=== PATIENT | male | born 1985 | race Caucasian/White ===

== ENCOUNTER 2017-02-25 07:08 | Emergency (ER) | payer OTHER ==
[~2017-02-25] VITALS: Ht 185.4 cm; Wt 142.0 kg
[~2017-02-25 07:08] MED LIST: LANS15CA27 PO
[2017-02-25] MEDS ORDERED: KETOROLAC TROMETHAMINE 30 MG/ML VIAL IV STA (07:10)
[2017-02-25] MEDS ORDERED: HYDROmorphone INJ 1 MG/ML SYR IV STA ×3 (07:10→12:18)
[2017-02-25] MEDS ORDERED: LIDODERM (LIDOCAINE) PATCH 5% TD STA (07:10)
[2017-02-25] MEDS ORDERED: CYCLOBENZAPRINE HCL 5 MG TAB PO STA (07:10)
[2017-02-25] MEDS ORDERED: DEXAMETHASONE INJ 10 MG in SYRINGE 0 ML IV STA (07:10)
[2017-02-25 07:12] VITALS: TEMP 37.1; Ht 185.4 cm; Wt 142.0 kg
--- NOTE | 2017-02-25 07:23 | EMERGENCY ROOM VISIT NOTE ---
History Report prepared by Josh: Abe Camara Under the Supervision of: Dr. Steve Francis M.D. First contact with patient: 07:06 Chief Complaint: BACK INJURY Stated Complaint: BACK PAIN History of Present Illness The patient is a 31 year old male who presents to the Emergency Room with complaints of constant sharp lower back pain that began [employer]. He rates his pain moderate in severity. 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 As he was lifting someone onto a stretcher, he felt and audibly hear a pop in his lower back. Then his legs felt mildly weak bilaterally and he began to have a constant pain in his lower back. He denies any current weakness or numbness. He feels as though his left leg is "heavy" but believes it is due to having to compensate for the other leg secondary to pain. His pain is exacerbated with movement. He denies any other abnormal symptoms at this time. He denies any previous back injuries. Source of History: patient Onset: [employer] Position: back (lower) Symptom Intensity: moderate Quality: sharp Timing: constant Modifying Factors (Worsening): movement Associated Symptoms: No weakness, No numbness Note: He denies any other abnormal symptoms at this time. Review of Systems See HPI for pertinent positives & negatives. A total of 10 systems reviewed and were otherwise negative. Past Medical & Surgical Medical Problems: (1) GERD (gastroesophageal reflux disease) Surgical Problems: (1) Hx of tonsillectomy Family History Cancer Diabetes mellitus Heart disease Social History Smoking Status: Never Smoker Alcohol Use: occasionally Marital Status: Housing Status: lives with significant other Occupation Status: employed Current/Historical Medications Scheduled Lansoprazole (Eq Lansoprazole), 15 MG PO DAILY Methylprednisolone (Medrol Dosepak), 1 PKT PO UD Scheduled PRN Oxycodone/Acetaminophen 5MG/325MG (Percocet 5MG/325MG), 1-2 TAB PO Q4H PRN for Pain Allergies Coded Allergies: No Known Allergies (Unverified , 02/25/17) Physical Exam Vital Signs Date Time Temp Pulse Resp B/P (MAP) Pulse Ox O2 Delivery O2 Flow Rate FiO2 02/25/17 12:35 89 16 130/77 98 02/25/17 11:27 89 16 130/77 98 Room Air 02/25/17 08:59 73 16 130/79 95 02/25/17 07:33 82 16 130/80 96 02/25/17 07:12 37.1 82 18 147/93 98 Room Air Physical Exam GENERAL: Patient is a healthy-appearing well-nourished male HEAD: Normocephalic atraumatic EYES: Ocular movements intact pupils equal and react to light OROPHARYNX mucous membranes are moist no exudates present no erythema or edema present NECK: Supple no nuchal rigidity CHEST: Good equal expansion LUNGS: Clear and equal to auscultation CARDIAC: Normal S1 and S2 ABDOMEN: Soft nontender no guarding BACK: No CVA tenderness. Able to walk on tiptoes and heels. No saddle anesthesia. No loss of bladder control. EXTREMITIES: No pain upon palpation normal muscle strength in all groups no clubbing cyanosis or edema NEURO: Patient is following commands and answering questions appropriately. Alert and oriented x3 Cranial Nerves 2-12 grossly intact Medical Decision & Procedures ER Provider Diagnostic Interpretation: Radiology results as stated below per my review and radiologist interpretation: MRI OF THE LUMBAR SPINE WITHOUT CONTRAST CLINICAL HISTORY: Low back pain. Left leg weakness. COMPARISON STUDY: No previous studies for comparison. TECHNIQUE: Utilizing a 1.5 Linnea magnet and dedicated coil, multiplanar, multiecho imaging of the lumbar spine was performed without IV contrast. FINDINGS: For purposes of numbering on this exam, the L5-S1 disc space is assigned to axial image 23 of 25. Alignment of the lumbar spine is anatomic. Vertebral body heights are maintained. There is no marrow replacement. There is no intracanalicular mass or fluid collection. Paravertebral soft tissues are unremarkable. Conus terminates at the T12-L1 level. L1-2: The central canal and neural foramen are patent. L2-3: The central canal and neural foramen are patent. L3-4: The central canal neural foramen are patent. L4-5: The central canal and neural foramen are patent. L5-S1: There is mild disc space narrowing. Note is made of a left paracentral disc protrusion that measures 8 x 7 x 5 mm. This results in moderate narrowing of the left lateral recess. This displaces the descending left S1 nerve root. The neural foramen are patent. There is no significant central canal stenosis. IMPRESSION: 1. 8 mm x 7 mm x 5 mm left paracentral disc protrusion at L5-S1 that results in moderate narrowing of the left lateral recess. This disc herniation contacts and likely displaces the descending left S1 nerve root. This could be correlated with left S1 radiculopathy. 2. Otherwise, unremarkable MRI of the lumbar spine. Electronically signed by: Brenden Guy M.D. 02/25/2017 8:22 AM Dictated Date/Time: 02/25/2017 8:14 AM Medications Administered Medications (Trade) Dose Ordered Sig/Kristen Route Start Time Stop Time Status Last Admin Dose Admin Hydromorphone HCl (Dilaudid Inj) 1 mg NOW STAT IV 02/25/17 07:10 02/25/17 07:13 DC 02/25/17 07:24 1 MG Ketorolac Tromethamine (Toradol Inj) 30 mg NOW STAT IV 02/25/17 07:10 02/25/17 07:13 DC 02/25/17 07:22 30 MG Dexamethasone Sodium Phosphate 10 mg/Syringe 2.5 ml @ 1 mls/min NOW STAT IV 02/25/17 07:10 02/25/17 07:13 DC 02/25/17 07:30 1 MLS/MIN Cyclobenzaprine HCl (Flexeril Tab) 10 mg NOW STAT PO 02/25/17 07:10 02/25/17 07:13 DC 02/25/17 07:26 10 MG Lidocaine (Lidoderm Patch 5%) 1 patch NOW STAT TD 02/25/17 07:10 02/25/17 07:13 DC 02/25/17 08:12 1 PATCH Hydromorphone HCl (Dilaudid Inj) 1 mg NOW STAT IV 02/25/17 08:41 02/25/17 08:42 DC 02/25/17 08:58 1 MG Hydromorphone HCl (Dilaudid Inj) 1 mg NOW STAT IV 02/25/17 12:18 02/25/17 12:20 DC 02/25/17 12:29 1 MG ED Course 0706: Past medical records reviewed. The patient was evaluated in room B3. A complete history and physical examination was performed. 0710: Ordered Lidocaine 1 patch TD, Cyclobenzaprine 10 mg PO, Dexamethasone Sodium Phosphate 2.5 ml @ 1 mls/min IV, Toradol Inj 30 mg IV, Dilaudid Inj 1 mg IV 0841: Ordered Dilaudid Inj 1 mg IV 1120: I discussed the patient's case with Dr. De Leon of Orthopedics at this time. He recommended that I speak with Dr. Jhaveri of Pain Management for an epidural procedure setup. 1142: I spoke with Dr. Jhaveri at this time. He will see the patient tomorrow in his office. 1218: Ordered Dilaudid Inj 1 mg IV 1245: Upon reexamination the patient is resting. I discussed results and treatment plan with the patient. He verbalizes agreement and understanding. The patient is ready for discharge. Medical Decision Differential diagnosis: Etiologies such as fracture, dislocation, intra-abdominal, pneumothorax, intrathoracic , intracranial, neurologic, as well as other traumatic pathologies were entertained. This is a 31-year-old male who presents emergency department complaining of low back pain after feeling a pop in his back. In addition the patient is also complaining of left leg weakness. Patient was given 1 of Dilaudid 3 in the emergency department along with Flexeril Zofran and Decadron. The patient was sent for an MRI which is concerning for slipped disc. I did discuss the case with Dr. De Leon who is on-call for orthopedics as well as Dr. Orozco who agreed to see the patient tomorrow. Patient was given a Medrol Dosepak for home and was started on Percocet. Patient was in agreement with the treatment plan. Medication Reconcilliation Current Medication List: was personally reviewed by me Blood Pressure Screening Patient's blood pressure: Elevated blood pressure Blood pressure disposition: Referred to PCP Consults Time Called: 1115 Consulting Physician: Dr. De Leon - Orthopedics Returned Call: 1120 We discussed the patient's case. They recommended I speak with Dr. Jhaveri of pain management for an epidural procedure. Additional Consults: Time Called: 1140 Consulted Physician: Dr. Jhaveri - Pain Management Returned Call: 1142 Additional Comments: He will evaluate the patient in his office tomorrow. Impression Primary Impression: Slipped intervertebral disc Scribe Attestation The scribe's documentation has been prepared under my direction and personally reviewed by me in its entirety. I confirm that the note above accurately reflects all work, treatment, procedures, and medical decision making performed by me. Departure Information Dispostion Home / Self-Care Prescriptions Methylprednisolone (MEDROL DOSEPAK) 4 Mg Abdullahi 1 PKT PO UD for 6 Days, #1 PKT Prov: Steve Francis MD 02/25/17 Oxycodone/Acetaminophen 5MG/325MG (PERCOCET 5MG/325MG) Tab 1-2 TAB PO Q4H Y for Pain, #14 TAB Prov: Steve Francis MD 02/25/17 Referrals Thor Bryant D.O. (PCP) Florentino De Leon D.O. Thaker, Upendra., M.D. Forms HOME CARE DOCUMENTATION FORM, IMPORTANT VISIT INFORMATION, School Instructions, Work Instructions Patient Instructions My [facility] Additional Instructions Follow up with Dr Tao's office tomorrow Dr De Leon's office next week You received narcotic or benzodiazepene medication while in the emergency room today. This is an addictive medication that may cause drowziness as well as constipation. Do not drive, operate heavy machinery, or drink alcohol under the influence of this medication. Take 600 mg Ibuprofen every 6 hours Take Percocet for breakthrough pain You have been examined and treated today on an emergency basis only. This is not a substitute for, or an effort to provide, complete comprehensive medical care. It is impossible to recognize and treat all injuries or illnesses in a single emergency department visit. It is therefore important that you follow up closely with Dr Bryant. Call as soon as possible for an appointment. Thank you for your time and consideration. I look forward to speaking with you again soon. Please don't hesitate to call us if you have any questions. Problem Qualifiers Primary Impression: Slipped intervertebral disc Spinal region: lumbosacral Qualified Codes: M51.27 - Other intervertebral disc displacement, lumbosacral region
--- NOTE | 2017-02-25 08:23 | DIAGNOSTIC IMAGING REPORT ---
MRI OF THE LUMBAR SPINE WITHOUT CONTRAST CLINICAL HISTORY: Low back pain. Left leg weakness. COMPARISON STUDY: No previous studies for comparison. TECHNIQUE: Utilizing a 1.5 Linnea magnet and dedicated coil, multiplanar, multiecho imaging of the lumbar spine was performed without IV contrast. FINDINGS: For purposes of numbering on this exam, the L5-S1 disc space is assigned to axial image 23 of 25. Alignment of the lumbar spine is anatomic. Vertebral body heights are maintained. There is no marrow replacement. There is no intracanalicular mass or fluid collection. Paravertebral soft tissues are unremarkable. Conus terminates at the T12-L1 level. L1-2: The central canal and neural foramen are patent. L2-3: The central canal and neural foramen are patent. L3-4: The central canal neural foramen are patent. L4-5: The central canal and neural foramen are patent. L5-S1: There is mild disc space narrowing. Note is made of a left paracentral disc protrusion that measures 8 x 7 x 5 mm. This results in moderate narrowing of the left lateral recess. This displaces the descending left S1 nerve root. The neural foramen are patent. There is no significant central canal stenosis. IMPRESSION: 1. 8 mm x 7 mm x 5 mm left paracentral disc protrusion at L5-S1 that results in moderate narrowing of the left lateral recess. This disc herniation contacts and likely displaces the descending left S1 nerve root. This could be correlated with left S1 radiculopathy. 2. Otherwise, unremarkable MRI of the lumbar spine. Electronically signed by: Brenden Guy M.D. 02/25/2017 8:22 AM Dictated Date/Time: 02/25/2017 8:14 AM
[2017-02-25] MEDS ORDERED: [UNRECOGNIZED DRUG - CODE] PO (08:33)
[2017-02-25] MEDS ORDERED: OXYC-57 PO (11:51)
[2017-02-25] MEDS ORDERED: METH4PAK PO (11:51)
[2017-02-25 12:35] VITALS: BP 130/77; PULSE 89; O2SAT 98
[2017-02-26] MEDS ORDERED: LANS15CA6 PO (10:05)
== END 2017-02-25 12:36 | disposition home or self-care (01) ==
LOC: EDBD 07:08 → C.EDB 07:23
DX: M51.27 Other intervertebral disc displacement, lumbosacral region (principal); K21.9 Gastro-esophageal reflux disease without esophagitis; Z90.89 Acquired absence of other organs; Z83.3 Family history of diabetes mellitus; Z79.899 Other long term (current) drug therapy